=== PATIENT | female | born 1980 | race Caucasian/White ===

== ENCOUNTER → 2018-12-12 | Outpatient (CLI) | payer MEDICARE ==
[~2018-12-12] MED LIST: BENTYL 10MG10 MG/CAP PO; CELEBREX 200MG200 MG PO; CIPRO 500MG TA500 MG PO; DEXILANT60 MG PO; DONNATAL EXTENT1 TAB PO; FLAGYL500 MG PO; NORCO 325 MG-51 TAB PO; PEPCID 20MG TAB20 MG PO; PRILOSEC 20MG20 MG; REGLAN 10MG10 MG/TAB PO
== END ==
LOC: COL.PUL 11:28
DX: R06.02 Shortness of breath (principal); Z87.891 Personal history of nicotine dependence

== ENCOUNTER → 2019-03-28 | Outpatient (CLI) | payer MEDICARE | LOC: COL.PUL 12:56 | DX: R06.02 Shortness of breath (principal); Z87.891 Personal history of nicotine dependence | CPT/HCPCS: J7674 ==

== ENCOUNTER 2020-04-16 10:29 | Outpatient (CLI) | payer MEDICARE ==
[~2020-04-16] VITALS: Ht 162.6 cm; Wt 94.6 kg
[~2020-04-16 10:29] MED LIST changes: +AMITIZA24 MCG PO; +ELAVIL150 MG PO; +LIORESAL 1010 MG/TAB PO; +MINIPRESS2 MG PO; +VIIBRYD20 MG PO; +XANAX 1MG1 MG PO
[2020-04-16 10:55] VITALS: BP 149/87; PULSE 88
[2020-04-16 11:45] VITALS: BP 122/75; PULSE 83
--- NOTE | 2020-04-16 11:45 | NUR ---
Pt denies pain and needs. Resting in bed. VSS
[2020-04-16 12:00] VITALS: BP 121/77; PULSE 79
[2020-04-16 12:15] VITALS: BP 114/80; PULSE 79
[2020-04-16 12:45] VITALS: BP 113/70; PULSE 79
[2020-04-16 12:55] VITALS: BP 116/79; PULSE 84
--- NOTE | 2020-04-16 13:07 | NUR ---
Discharge instructions given. Transferred to private car by merry
== END 2020-04-16 13:07 | disposition home or self-care (01) ==
LOC: COL.RAD 10:29
DX: M47.812 Spondylosis without myelopathy or radiculopathy, cervical region (principal)
CPT/HCPCS: Q9967

== ENCOUNTER 2020-06-16 10:41 | Emergency (ER) | payer MEDICARE ==
[~2020-06-16] VITALS: Ht 162.6 cm; Wt 92.7 kg
[2020-06-16 10:48] VITALS: TEMP 98.4
[2020-06-16 11:38] LABS: BASO % 0.5 % (0.0-2.0); EOS # 0.1 (0.0-0.7); EOS % 1.8 % (0-4.0); GRAN # 5.1 (1.4-6.5); GRAN % 69.4 % (42.2-75.2); HEMOGLOBIN 14.3 g/dl (12.5-16.0); LYMPH # 1.6 (1.2-3.4); LYMPH % 21.3 % (20.0-51.0); MEAN CELL VOLUME 91 fl (80.0-100.0); MEAN CORPUSCULAR HEMOGLOBIN 31 pg (27.0-31.0); MEAN CORPUSCULAR HGB CONC 34 g/dl (33.0-37.0); MEAN PLATELET VOLUME 10.7 fl (7.4-10.4); MONO # 0.5 (0.1-0.6); MONO % 6.7 % (1.7-9.3); PLATELET COUNT 210 K/mm3 (130-400); RED BLOOD COUNT 4.61 M/mm3 (4.10-5.30); REDCELL DISTRIBUTION WIDTH-CV 12.9 % (11.5-14.5)
[2020-06-16 11:49] LABS: ALBUMIN 4.5 gm/dL (3.5-5.0); BILIRUBIN,TOTAL 0.9 mg/dL (0.0-1.0); CALCIUM 9.3 mg/dL (8.4-10.2); CREATININE, serum 0.8 (0.52-1.25); POTASSIUM 4.4 mmol/L (3.4-5.0); TOTAL PROTEIN 8.1 gm/dL (6.4-8.2)
[2020-06-16 12:05] LABS: COLLECTION METHOD CLEAN CATCH
[2020-06-16 12:17] LABS: MUCOUS Present /lpf; PH 6 (5-8); URINE APPEARANCE Clear; URINE BACTERIA None Seen /hpf; URINE BILIRUBIN Negative (NEGATIVE); URINE BLOOD Negative (NEGATIVE); URINE COLOR Yellow; URINE GLUCOSE Negative (NEGATIVE); URINE KETONE Negative (NEGATIVE); URINE LEUKOCYTE ESTERASE Negative (NEGATIVE); URINE NITRATE Negative (NEGATIVE); URINE PROTEIN(semi-quant) Negative (NEGATIVE); URINE UROBILINOGEN Negative (NEGATIVE)
[2020-06-16 13:00] VITALS: BP 129/94; PULSE 91
== END 2020-06-16 13:02 | disposition home or self-care (01) ==
LOC: COL.ER 10:41
PROVIDERS: Physician Assistant
DX: R14.0 Abdominal distension (gaseous) (principal); K59.00 Constipation, unspecified; F41.9 Anxiety disorder, unspecified; K21.9 Gastro-esophageal reflux disease without esophagitis; Z87.891 Personal history of nicotine dependence; Z90.49 Acquired absence of other specified parts of digestive tract
CPT/HCPCS: J7030; Q9967

== ENCOUNTER 2021-09-29 00:19 | Emergency (ER) | payer MEDICARE ==
[~2021-09-29] VITALS: Ht 162.6 cm; Wt 103.6 kg
[2021-09-29 02:54] VITALS: BP 150/87; PULSE 101; TEMP 98.7
== END 2021-09-29 02:54 | disposition home or self-care (01) ==
LOC: COL.ER 00:19
DX: K59.00 Constipation, unspecified (principal); Z90.710 Acquired absence of both cervix and uterus; Z87.19 Personal history of other diseases of the digestive system

== ENCOUNTER → 2022-02-11 | Outpatient (CLI) | payer MEDICARE | LOC: MC.RAD 09:56 | DX: R92.0 Mammographic microcalcification found on diagnostic imaging of breast (principal) ==

== ENCOUNTER → 2022-03-26 | Outpatient (CLI) | payer MEDICARE | LOC: COL.RAD 08:29 | DX: K59.00 Constipation, unspecified (principal) ==

== ENCOUNTER → 2022-03-31 | Outpatient (CLI) | payer MEDICARE | LOC: COL.RAD 08:33 | DX: K59.00 Constipation, unspecified (principal) ==